=== PATIENT | female | born 1970 | race African-American/Black ===

== ENCOUNTER 2017-08-29 21:12 | Emergency (ER) | payer OTHER ==
[~2017-08-29] VITALS: Ht 167.6 cm; Wt 150.9 kg
[~2017-08-29 21:12] MED LIST: AMLO5TAB96 PO; ASPI81TA82 PO; METO50TA OR
[2017-08-29 21:25] VITALS: BP 171/97; PULSE 68; RESP 22; TEMP 97.8; O2SAT 97
[2017-08-29] MEDS ORDERED: CHLOR50 PO (21:52)
[2017-08-29] MEDS ORDERED: METO100T PO (21:52)
[2017-08-29] MEDS ORDERED: ASPI81CH6 CHEW (21:52)
[2017-08-29] MEDS ORDERED: LEVO.075 PO (21:52)
--- NOTE | 2017-08-29 22:28 | PD ---
HPI Chief Complaint: Musculoskeletal Complaint Time Seen by Provider: 21:54 Travel History International Travel<30 days: No Contact w/Intl Traveler<30days: No Traveled to known affect area: No History of Present Illness HPI Patient is a 47-year-old female who 3 weeks ago said she tripped and fell everted her right foot and went to urgent care. They did x-rays which she said did not show a fracture they put her in a large walking boot gave her antibiotics for 7 days. The pain continues in her lateral aspect of her right foot distally as well as shooting pains she has taken Tylenol without relief. She had seen in the urgent care prior to us 3 weeks ago. Pain is localized it does not radiate. It is in the fifth metatarsal area on the lateral aspect of the right foot. Patient is obese PFS Past Medical History Heart Rhythm Problems: No Cardiac Catheterization: No Cardiovascular Problems: Yes (HTN) High Cholesterol: No Congestive Heart Failure: No Coronary Artery Disease: Yes Diabetes: No Diminished Hearing: No Genitourinary: Yes Hypertension: Yes Reproductive: Yes (LUMP IN LEFT BREAST- ) Migraines: Yes Thyroid Disease: Yes Ulcer: Yes Tetanus Vaccination: < 5 Years Influenza Vaccination: Yes (unsure but thinks so) ?: Not : 2 Para: 2 Past Surgical History Coronary Artery Bypass Graft: No Gynecologic Surgery: Yes Hysterectomy: Yes (2003) Family History Family Myocardial Infarction: Yes (GRANDMOTHER ) Social History Alcohol Use: Yes (occassional) Tobacco Use: No Substance Use: No Allergies-Medications (Allergen,Severity, Reaction): Coded Allergies: acetaminophen (Verified Adverse Reaction, Severe, VOMITING, 08/29/17) oxycodone (Verified Adverse Reaction, Severe, VOMITING, 08/29/17) propoxyphene (Verified Adverse Reaction, Severe, VOMITING, 08/29/17) Reported Meds & Prescriptions Reported Meds & Active Scripts Active Ibuprofen 600 Mg Tab 600 Mg PO Q6H PRN Reported Chlorthalidone 50 Mg Tab 50 Mg PO DAILY Aspirin Low Dose (Aspirin) 81 Mg Chew 81 Mg CHEW DAILY Synthroid (Levothyroxine Sodium) 75 Mcg Tab 75 Mcg PO DAILY Metoprolol Tartrate 100 Mg Tab 100 Mg PO DAILY Review of Systems Except as stated in HPI: all other systems reviewed are Neg (musculoskeletal positive for aches and burning feeling in the right foot all other systems are negative) Physical Exam Narrative GENERAL: non toxic in no distress SKIN: Warm and dry. HEAD: Atraumatic. Normocephalic. EYES: Pupils equal and round. No scleral icterus. No injection or drainage. ENT: No nasal bleeding or discharge. Mucous membranes pink and moist. NECK: Trachea midline. No JVD. CARDIOVASCULAR: Regular rate and rhythm. RESPIRATORY: No accessory muscle use. Clear to auscultation. Breath sounds equal bilaterally. GASTROINTESTINAL: Abdomen soft, non-tender, nondistended. Hepatic and splenic margins not palpable. MUSCULOSKELETAL: Extremities right lateral metatarsal area is tender no swelling no erythema ,. No obvious deformities. NEUROLOGICAL: Awake and alert. No obvious cranial nerve deficits. Motor grossly within normal limits. Five out of 5 muscle strength in the arms and legs. Normal speech. PSYCHIATRIC: Appropriate mood and affect; insight and judgment normal. Data Data Last Documented VS Vital Signs Date Time Temp Pulse Resp B/P (MAP) Pulse Ox O2 Delivery O2 Flow Rate FiO2 08/29/17 23:40 61 18 137/68 (91) 96 08/29/17 21:25 97.8 Orders Orders Ibuprofen (Motrin) (08/29/17 22:30) Foot, Complete (Tor6hwp) (08/29/17 ) Shoe Post Op (08/29/17 ) Ed Discharge Order (08/29/17 23:22) Shoe Post Op (08/29/17 ) Splint Or Brace Apply/Monitor (08/29/17 23:36) Shoe Cast (08/29/17 ) MDM Medical Decision Making Medical Screen Exam Complete: Yes Emergency Medical Condition: Yes Differential Diagnosis hicks fracture vs non union fifth metatrsal fracture vs sprain, right foot vs contusion Narrative Course xrays negative pt place in a post operative shoe and follow up as outpt Diagnosis Primary Impression: Sprain of foot, right Scripts Ibuprofen (Ibuprofen) 600 Mg Tab 600 MG PO Q6H Y for PAIN, #20 TAB 0 Refills Prov: Timmy Hawkins MD 08/29/17 Disposition: 01 DISCHARGE HOME Condition: Good Timmy Hawkins MD Aug 29, 2017 22:28
[2017-08-29] MEDS ORDERED: IBUPROFEN 600 MG TAB PO ONE (22:30)
--- NOTE | 2017-08-29 22:52 | RADRPT ---
EXAM DATE/TIME: 08/29/2017 22:39 [facility] COMPARISON: No previous studies available for comparison. INDICATIONS : Right lateral foot pain for 3 weeks. Patient hit the right foot on the wall. MEDICAL HISTORY : None. SURGICAL HISTORY : None. ENCOUNTER: Initial ACUITY: 3 weeks PAIN SCORE: 5/10 LOCATION: Right lateral foot. FINDINGS: Three view examination of the right foot demonstrates no soft tissue swelling, dislocation, or fractu re. The tarsal bones appear intact. The interphalangeal and metatarsophalangeal joints are intact. The calcaneus is intact. There are calcaneal spurs at the Achilles and plantar aponeurosis attachm ent sites. Minimal hypertrophic changes seen at the dorsal midfoot. Bony mineralization is normal. CONCLUSION: Mild chronic change as described above. Chapin Marrqouin MD on August 29, 2017 at 22:50 Board Certified Radiologist. This report was verified electronically.
[2017-08-29] MEDS ORDERED: IBUP-232 PO (23:22)
[2017-08-29 23:40] VITALS: BP 137/68
== END 2017-08-29 23:42 | disposition home or self-care (01) ==
LOC: PHEFT 21:12
DX: S93.601A Unspecified sprain of right foot, initial encounter (principal); W01.0XXA Fall on same level from slipping, tripping and stumbling without subsequent striking against object, initial encounter
CPT/HCPCS: 73630; 99283; L3260

== ENCOUNTER 2018-02-01 18:25 | Emergency (ER) | payer SELFPAY ==
[~2018-02-01] VITALS: Ht 167.6 cm; Wt 148.7 kg
[~2018-02-01 18:25] MED LIST changes: -AMLO5TAB96 PO; +ASPI81CH6 CHEW; -ASPI81TA82 PO; +CHLOR50 PO; +IBUP-232 PO; +LEVO.075 PO; +METO100T PO; -METO50TA OR
[2018-02-01 18:28] VITALS: BP 159/95; PULSE 80; RESP 16; TEMP 98; O2SAT 96
[2018-02-01] MEDS ORDERED: AMOX500T PO (19:26)
[2018-02-01] MEDS ORDERED: BENZ100 PO (19:26)
--- NOTE | 2018-02-01 19:27 | PD ---
HPI Chief Complaint: Cold / Flu Symptoms Time Seen by Provider: 19:13 Travel History International Travel<30 days: No Contact w/Intl Traveler<30days: No Traveled to known affect area: No History of Present Illness HPI This is a 47-year-old female here with ear pain, nasal congestion, cough 1 week. Reports here pain is constant and throbbing. Symptom severity is moderate. No aggravating or alleviating factors. No sick contacts or foreign travel. Symptom unrelieved by OTC cough and cold medications. PFSH Past Medical History Heart Rhythm Problems: No Cardiac Catheterization: No Cardiovascular Problems: Yes (HTN) High Cholesterol: No Congestive Heart Failure: No Coronary Artery Disease: Yes Diabetes: No Diminished Hearing: No Genitourinary: Yes Hypertension: Yes Reproductive: Yes (LUMP IN LEFT BREAST- ) Immunizations Current: Yes Migraines: Yes Thyroid Disease: Yes Ulcer: Yes Tetanus Vaccination: > 5 Years Influenza Vaccination: No ?: Not : 2 Para: 2 Past Surgical History Coronary Artery Bypass Graft: No Gynecologic Surgery: Yes Hysterectomy: Yes Family History Family Myocardial Infarction: Yes (GRANDMOTHER ) Social History Alcohol Use: Yes (occassional) Tobacco Use: No Substance Use: No Allergies-Medications (Allergen,Severity, Reaction): Coded Allergies: acetaminophen (Verified Adverse Reaction, Severe, VOMITING, 02/01/18) oxycodone (Verified Adverse Reaction, Severe, VOMITING, 02/01/18) propoxyphene (Verified Adverse Reaction, Severe, VOMITING, 02/01/18) Reported Meds & Prescriptions Reported Meds & Active Scripts Active Reported Chlorthalidone 50 Mg Tab 50 Mg PO DAILY Aspirin Low Dose (Aspirin) 81 Mg Chew 81 Mg CHEW DAILY Synthroid (Levothyroxine Sodium) 75 Mcg Tab 75 Mcg PO DAILY Metoprolol Tartrate 100 Mg Tab 100 Mg PO DAILY Review of Systems Except as stated in HPI: all other systems reviewed are Neg General / Constitutional: No: Fever Eyes: No: Visual changes HENT: Positive: Congestion, Earache Cardiovascular: No: Chest Pain or Discomfort Respiratory: Positive: Cough Gastrointestinal: No: Abdominal Pain Genitourinary: No: Dysuria Physical Exam Narrative GENERAL: Alert and well-appearing 47-year-old female SKIN: Warm and dry. No rash HEAD: Normocephalic. EYES: No scleral icterus. No injection or drainage. Ear/nose/throat: Left TM erythema, bulging, loss of landmarks. No canal swelling or drainage. No mastoid tenderness. Clear nasal discharge. Mild pharyngeal erythema. Uvula midline. Airways patent. NECK: Supple, trachea midline. No meningismus. CARDIOVASCULAR: Regular rate and rhythm RESPIRATORY: Breath sounds equal bilaterally. No accessory muscle use. GASTROINTESTINAL: Abdomen soft, non-tender, nondistended. MUSCULOSKELETAL: No cyanosis, or edema. BACK: Nontender without obvious deformity. No CVA tenderness. Data Data Last Documented VS Vital Signs Date Time Temp Pulse Resp B/P (MAP) Pulse Ox O2 Delivery O2 Flow Rate FiO2 02/01/18 18:28 98.0 80 16 159/95 (116) 96 MDM Medical Decision Making Medical Screen Exam Complete: Yes Emergency Medical Condition: Yes Differential Diagnosis URI, otitis media, bronchitis Narrative Course 47-year-old female with left otitis media. She is nontoxic appearing. Vital signs are stable. She will be treated with amoxicillin. Diagnosis Primary Impression: Otitis media Qualified Codes: H66.90 - Otitis media, unspecified, unspecified ear Referrals: Primary Care Physician Additional Instructions: Ibuprofen as needed for pain. Antibiotics as directed. Follow-up with your primary doctor. Scripts Benzonatate (Tessalon Perles) 100 Mg Cap 200 MG PO TID Y for COUGH, #12 CAP 0 Refills Prov: Cecily Delgado 02/01/18 Amoxicillin (Amoxicillin) 500 Mg Tab 500 MG PO TID for Infection for 10 Days, TAB 0 Refills Prov: Cecily Delgado 02/01/18 Disposition: 01 DISCHARGE HOME Condition: Stable Cecily Delgado Feb 01, 2018 19:27
== END 2018-02-01 19:38 | disposition home or self-care (01) ==
LOC: PHEFT 18:25
DX: H66.92 Otitis media, unspecified, left ear (principal); I10 Essential (primary) hypertension; I25.10 Atherosclerotic heart disease of native coronary artery without angina pectoris; E07.9 Disorder of thyroid, unspecified
CPT/HCPCS: 99283